=== PATIENT | female | born 1995 | race Caucasian/White ===

== ENCOUNTER 2017-06-14 09:20 | Emergency (ER) | payer OTHER ==
[~2017-06-14] VITALS: Ht 162.6 cm; Wt 172.4 kg
[2017-06-14 09:35] VITALS: BP 143/80
[2017-06-14] MEDS ORDERED: ULTRAM 50MG TAB50 MG PO (09:49)
[2017-06-14] MEDS ORDERED: FLEXERIL PO (09:49)
== END 2017-06-14 10:02 | disposition home or self-care (01) ==
LOC: M.ERS 09:20
DX: M54.5 Low back pain (principal)